=== PATIENT | male | born 1985 | race African-American/Black ===

== ENCOUNTER 2017-05-08 03:35 | Emergency (ER) | payer SELFPAY ==
[~2017-05-08] VITALS: Ht 170.2 cm; Wt 86.2 kg
--- NOTE | 2017-05-08 03:46 | NUR ---
Pt c/o left sided neck pain since earlier today, denies any trauma, numbness/tingling, MAN. Pt denies CP, SOB, dizziness, n/v, no other complaints, no distress noted.
--- NOTE | 2017-05-08 04:12 | NUR ---
Gave pt RX and d/c instructions, verbalized understanding.
[2017-05-08] MEDS ORDERED: ONDANSETRON ODT 4 MG TAB.RAPDIS SL ONE (04:15)
[2017-05-08] MEDS ORDERED: ONDANSETRON ODT 4 MG TAB.RAPDIS ONE (04:26)
== END 2017-05-08 04:21 | disposition home or self-care (01) ==
LOC: ER 03:40
DX: M54.2 Cervicalgia (principal)
CPT/HCPCS: A4663; Q0162

== ENCOUNTER 2017-05-16 02:37 | Emergency (ER) | payer SELFPAY ==
[~2017-05-16] VITALS: Ht 170.2 cm; Wt 81.6 kg
--- NOTE | 2017-05-16 03:32 | NUR ---
Patient discharged to home in stable conditon. Written and verbal after care instructions given. Patient verbalizes understanding of instructions.
== END 2017-05-16 03:33 | disposition home or self-care (01) ==
LOC: ER 02:39
DX: B35.3 Tinea pedis (principal)
CPT/HCPCS: A4663

== ENCOUNTER 2018-11-15 16:39 | Emergency (ER) | payer SELFPAY ==
[~2018-11-15] VITALS: Ht 170.2 cm; Wt 77.1 kg
--- NOTE | 2018-11-15 17:17 | NUR ---
Patient observed by staff reaching in his un-buttoned pants for a prolonged period. Security contacted, at bedside to ensure patient has no dangerous items in his possession for safety of staff. Addendum: 11/15/18 at 1719 by ELIO Security was requested at time of writing.
--- NOTE | 2018-11-15 17:31 | NUR ---
Security at bedside, performed wanding and confiscated a small mettallic object in the patient's pocket. Patient was given instructions on how to retrieve confiscated property after discharge.
--- NOTE | 2018-11-15 17:32 | NUR ---
Dr Allison at the bedside for [facility]SE, Cely BROWNN accompaning .
[2018-11-15] MEDS ORDERED: PANTOPRAZOLE SODIUM 40 MG TABLET.DR PO ONE ×2 (17:45→17:47)
[2018-11-15] MEDS ORDERED: LIDOCAINE VISCUS 2% 15 ML UDC MM ONE (17:45)
[2018-11-15] MEDS ORDERED: ACETAMINOPHEN ES 500 MG TABLET PO ONE (17:45)
[2018-11-15] MEDS ORDERED: MAG HYDROX/AL HYDROX/SIMETH 30 ML LIQUID UDC PO ONE (17:45)
[2018-11-15 17:46] VITALS: BP 109/70
[2018-11-15] MEDS ORDERED: ACETAMINOPHEN ES 500 MG TABLET ONE (17:46)
[2018-11-15] MEDS ORDERED: MAG HYDROX/AL HYDROX/SIMETH 30 ML LIQUID UDC ONE (17:46)
[2018-11-15] MEDS ORDERED: LIDOCAINE VISCUS 2% 15 ML UDC ONE (17:46)
--- NOTE | 2018-11-15 17:49 | NUR ---
Patient was observed holding the medications in his hand after indicating that he had taken them. After being questioned about the medications, he stated "oh, I don't really take medicine, I just wanted to get checked out" before standing and walking out of the department. Patient was discharged to home in stable conditon. Written and verbal after care instructions given. Patient verbalizes understanding of instructions.
== END 2018-11-15 17:56 | disposition home or self-care (01) ==
LOC: ER 16:39
DX: K21.9 Gastro-esophageal reflux disease without esophagitis (principal); K14.6 Glossodynia
CPT/HCPCS: A4663; A9150